=== PATIENT | female | born 1975 | race Asian ===

== ENCOUNTER 2019-12-03 20:27 | Emergency (ER) | payer OTHER ==
[2019-12-03] MEDS ORDERED: LIDOCAINE VISCOUS 2% 15 ML UDC MM STA (20:46)
[2019-12-03] MEDS ORDERED: MAG HYDROX/AL HYDROX/SIMETH 30 ML UDC PO STA (20:47)
--- NOTE | 2019-12-03 20:54 | ED Physician Documentation ---
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 By that afternoon she had pain in her abdomen in the epigastrium and she started on some Nexium which she states helped for about a week and then did not seem to help. Over the past week she has had increasing pain and today she is in distress with pain. Review of Systems Constitutional: denies: Fever Nose: denies: Congestion Throat: denies: Sore throat Cardiac: denies: Chest pain / pressure Respiratory: denies: Dyspnea, Cough GI: reports: Abdominal Pain, Nausea : denies: Dysuria, Frequency Skin: denies: Rash Musculoskeletal: denies: Neck pain, Back pain, Extremity pain Neurologic: denies: Generalized weakness, Focal weakness, Numbness PD PAST MEDICAL HISTORY - Past Medical History Past Medical History: Yes Cardiovascular: None Respiratory: None Neuro: None Endocrine/Autoimmune: None GI: GERD TAR POT WORKER: None : None HEENT: None Psych: None Musculoskeletal: None Derm: None - Past Surgical History Past Surgical History: Yes General: EGD - Present Medications Home Medications: Ambulatory Orders Medication Instructions Recorded Confirmed Lisinopril [Prinivil] 10 mg PO DAILY 12/03/19 12/03/19 Sucralfate [Carafate] 1 gm PO ACHS #60 tablet 12/03/19 - Allergies Allergies/Adverse Reactions: Allergies Allergy/AdvReac Type Severity Reaction Status Date / Time No Known Drug Allergies Allergy Verified 12/03/19 20:36 - Social History Does the pt smoke?: No Smoking Status: Never smoker Does the pt drink ETOH?: No Does the pt have substance abuse?: No - Immunizations Immunizations are current?: No Immunizations: TDAP >10years/unknown PD ED PE NORMAL - Vitals Vital signs reviewed: Yes (tachy and hypertensive ) - General General: Alert and oriented X 3, Well developed/nourished, Other (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 ) - HEENT HEENT: Atraumatic, PERRL, EOMI - Neck Neck: Supple, no meningeal sign - Cardiac Cardiac: No murmur, Other (tachy to 100) - Respiratory Respiratory: No respiratory distress, Clear bilaterally - Abdomen Abdomen: Soft, Other (epigastric tenderness specifically and reproducible without LUQ or RUQ pain to palpation ) - Back Back: No CVA TTP, No spinal TTP - Derm Derm: Normal color, Warm and dry, No rash - Extremities Extremities: No deformity, No edema, No calf tenderness / cord - Neuro Neuro: Alert and oriented X 3, 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, No motor deficit, No sensory deficit, Normal speech Eye Opening: Spontaneous Motor: Obeys Commands Verbal: Oriented GCS Score: 15 - Psych Psych: Normal mood Results - Vitals Vitals: Vital Signs - 24 hr 12/03/19 20:31 Temperature 36.8 C Heart Rate 109 H Respiratory 18 Rate Blood Pressure 147/94 H O2 Saturation 100 Oxygen O2 Source Room air - Labs Labs: Laboratory Tests 12/03/19 12/03/19 12/03/19 21:04 21:04 21:27 WBC 10.4 RBC 3.86 L Hgb 12.4 Hct 36.0 L MCV 93.3 MCH 32.1 H MCHC 34.4 RDW 11.7 L Plt Count 321 MPV 10.0 Neut # (Auto) 5.7 Lymph # (Auto) 3.1 Gulf # (Auto) 0.7 Eos # (Auto) 0.8 H Baso # (Auto) 0.1 Absolute Nucleated RBC 0.00 Nucleated RBC % 0.0 Sodium 135 Potassium 3.7 Chloride 100 L Carbon Dioxide 28 Anion Gap 7.0 BUN 12 Creatinine 0.5 Estimated GFR (MDRD) 135 Glucose 113 H Calcium 8.6 Total Bilirubin 0.5 AST 21 ALT 26 Alkaline Phosphatase 49 Total Protein 7.2 Albumin 4.1 Globulin 3.1 Albumin/Globulin Ratio 1.3 Lipase 46 Urine Color YELLOW Urine Clarity CLEAR Urine pH 8.0 H Ur Specific [place] 1.015 Urine Protein NEGATIVE Urine Glucose (UA) NEGATIVE Urine Ketones NEGATIVE Urine Occult Blood NEGATIVE Urine Nitrite NEGATIVE Urine Bilirubin NEGATIVE Urine Urobilinogen 0.2 (NORMAL) Ur Leukocyte Esterase NEGATIVE Ur Microscopic Review NOT INDICATED Urine Culture Comments NOT INDICATED Urine HCG, Qual NEGATIVE Procedures - Bedside sono Bedside sono by EMP: With use of bedside ultrasound the right upper quadrant is imaged the gallbladder is sonographically nontender there are no obvious stones in the common bile duct is measured at 0.4 cm. - IVC sono (time) 2049 Bedside IVC sono: IVC measures (cm) (1.54), Euvolemia PD MEDICAL DECISION MAKING - ED course Complexity details: reviewed results, re-evaluated patient, considered differential, d/w patient, d/w family ED course: Previously well 44-year-old female with a history of reflux has taken some ibuprofen 2 weeks ago and she has had an irritated stomach since then. She is taken 2 weeks of Nexium without resolution of her symptoms. I did discuss with the patient having missed a dose of her medication and she is fairly certain she did not. She did have a complete resolution of her symptoms with the use of viscous lidocaine and Mylanta and my interpretation of this is that she does have irritation to the stomach lining or the duodenum and I will add in Carafate to her treatment regimen as well as change her to a H2 moni instead of the proton pump inhibitor. She is administered Pepcid and Carafate here in the emergency department this evening. Departure - Departure Disposition: 01 Home, Self Care Clinical Impression: Gastritis Qualifiers: Gastritis type: unspecified gastritis Chronicity: acute Gastritis bleeding: without bleeding Qualified Code(s): K29.00 - Acute gastritis without bleeding Condition: Stable Instructions: ED PUD Vs Gastritis Follow-Up: [facility] [Provider Group] Prescriptions: Sucralfate [Carafate] 1 gm PO ACHS #60 tablet Comments: Today it appears the pain you are having is coming from your stomach or the duodenum and likely represents an irritation to the lining of the stomach or the duodenum associated with the ibuprofen. This will take some time to heal up and the recommendation is to switch to an "H2 moni" such as Pepcid or Tagamet. Take this on a regular basis for at least the next 2 weeks and in addition take the Carafate as prescribed before meals and at bedtime to aid in the healing. Pain that does not respond to this or recurs after completion of treatment indicates the need for endoscopy again.
[2019-12-03] MEDS ORDERED: SUCRALFATE 1 GM/10 ML UDC PO STA (21:02)
[2019-12-03] MEDS ORDERED: FAMOTIDINE 20 MG TABLET PO STA (21:02)
[2019-12-03 21:07] LABS: BASOPHILS # (AUTO) 0.1 10^3/uL (0.0-0.1); BASOPHILS % (AUTO) 0.6 %; EOSINOPHILS # (AUTO) 0.8 10^3/uL (0.0-0.7); EOSINOPHILS % (AUTO) 8.1 %; HGB - HEMOGLOBIN 12.4 g/dL (12.0-16.0); LYMPHOCYTES # (AUTO) 3.1 10^3/uL (1.5-3.5); LYMPHOCYTES % (AUTO) 29.7 %; MEAN CORPUSCULAR HEMOGLOBIN 32.1 pg (27.0-31.0); MEAN CORPUSCULAR HGB CONC 34.4 g/dL (32.0-36.0); MEAN CORPUSCULAR VOLUME 93.3 fL (81.0-99.0); MONOCYTES # (AUTO) 0.7 10^3/uL (0.0-1.0); MONOCYTES % (AUTO) 6.5 %; NEUTROPHILS # (AUTO) 5.7 10^3/uL (1.5-6.6); NEUTROPHILS % (AUTO) 54.8 %; PLT - PLATELET COUNT 321 10^3/uL (130-450); RED BLOOD COUNT 3.86 10^6/uL (4.20-5.40); RED CELL DISTRIBUTION WIDTH 11.7 % (12.0-15.0); WHITE BLOOD COUNT 10.4 x10^3/uL (4.8-10.8)
[2019-12-03 21:21] LABS: ALBUMIN 4.1 g/dL (3.2-5.5); ALBUMIN/GLOBULIN RATIO 1.3 (1.0-2.2); BILIRUBIN,TOTAL 0.5 mg/dL (0.2-1.0); CALCIUM 8.6 mg/dL (8.5-10.3); CREATININE 0.5 mg/dL (0.4-1.0); TOTAL PROTEIN 7.2 g/dL (6.7-8.2)
[2019-12-03 21:31] LABS: BILIRUBIN,URINE NEGATIVE (NEGATIVE); GLUCOSE, URINE (UA) NEGATIVE (NEGATIVE); KETONES,URINE (UA) NEGATIVE (NEGATIVE); LEUKOCYTE ESTERASE, URINE NEGATIVE (NEGATIVE); NITRITE,URINE NEGATIVE (NEGATIVE); OCCULT BLOOD,URINE NEGATIVE (NEGATIVE); PROTEIN,URINE NEGATIVE (NEGATIVE); UROBILINOGEN,URINE 0.2 (NORMAL) E.U./dL (NORMAL)
[2019-12-03 21:35] LABS: CLARITY,URINE CLEAR (CLEAR); HCG UR QUAL NEGATIVE
[2019-12-03 21:54] VITALS: BP 138/97
== END 2019-12-03 21:56 | disposition home or self-care (01) ==
LOC: ED 20:27
DX: K29.00 Acute gastritis without bleeding (principal); K21.9 Gastro-esophageal reflux disease without esophagitis
CPT/HCPCS: 36415; 80053; 81003; 81025; 83690; 85025; 99283; 99284; A9270; 81001; 87086